=== PATIENT | male | born 1995 | race Caucasian/White ===

== ENCOUNTER 2017-01-01 12:49 | Day surgery (SDC) | payer OTHER ==
[~2017-01-01 12:49] MED LIST: CEFAZOLIN 2 GM/D5W RTU 2 GM/50 ML RTUPB IV PRN; LACTATED RINGERS 1000 ML IV PRN; LIDOCAINE 0.5% INJ-PF (5 MG/ML) 50 ML SDV SUBCUT PRN
[2017-01-01] MEDS ORDERED: BUPIVACAINE HCL 0.25 % INJ/PF (2.5 MG/1 ML) 30 ML VIAL ONE (14:52)
[2017-01-01] MEDS ORDERED: FENTANYL CITRATE INJ/PF 100 MCG/2 ML AMPUL ONE (16:06)
[2017-01-01] MEDS ORDERED: MIDAZOLAM 2 MG/2 ML INJ ONE (16:06)
[2017-01-01] MEDS ORDERED: DEXAMETHASONE SOD PHOSPHATE INJ 4 MG/1 ML VIAL ONE (16:06)
[2017-01-01] MEDS ORDERED: HYDROMORPHONE HCL INJ/PF 2 MG/ML AMPULE ONE (16:06)
[2017-01-01] MEDS ORDERED: ONDANSETRON HCL INJ/PF 4 MG/2 ML SDV ONE (16:07)
[2017-01-01] MEDS ORDERED: PROPOFOL INJ 200 MG/20 ML VIAL IV ONE (16:07)
[2017-01-01] MEDS ORDERED: PROMETHAZINE HCL INJ 25 MG/1 ML VIAL IV PRN (16:49)
[2017-01-01] MEDS ORDERED: DIPHENHYDRAMINE HCL 50 MG/ML VIAL IV PRN (16:49)
[2017-01-01] MEDS ORDERED: MEPERIDINE HCL/PF INJ 25 MG/1 ML DISP.SYRIN IV PRN (16:49)
[2017-01-01] MEDS ORDERED: FENTANYL CITRATE INJ/PF 100 MCG/2 ML AMPUL IV PRN ×3 (16:49)
[2017-01-01] MEDS ORDERED: OXYCODONE-ACETAMINOPHEN 5-325 MG TABLET PO PRN (18:05)
[2017-01-01] MEDS ORDERED: HYDROMORPHONE HCL INJ/PF 2 MG/ML AMPULE IV PRN (18:06)
[2017-01-01] MEDS ORDERED: ONDANSETRON HCL INJ/PF 4 MG/2 ML SDV IV PRN (18:07)
--- NOTE | 2017-01-01 18:08 | OPERATIVE REPORT E ---
Operative Report NAME: WIL BOWIE : 1995 AGE: 21Y DATE OF SURGERY: 01/01/2017 ROOM: SURGEON: RADHA TRACY D.O. LOCKER OPERATOR: Milton Gomes M.D. PREOPERATIVE DIAGNOSIS: Left varicocele. POSTOPERATIVE DIAGNOSIS: Left varicocele. OPERATION: Left microscopic varicocelectomy. ANESTHESIA: General. INTRAVENOUS FLUIDS: 800 mL lactated Ringer's ESTIMATED BLOOD LOSS: 5 mL URINE OUTPUT: 0 IMPLANTS: None. DRAINS: None. COMPLICATIONS: None. FINDINGS: Left varicocele. INDICATIONS FOR PROCEDURE: The patient is a 21-year-old male with longstanding history of left grade III varicocele. He is counseled on the risks, benefits, and side effects of left-sided varicocelectomy. Consent was achieved. PROCEDURE: The patient was met in the preoperative holding area. Risks, benefits and side effects of left-sided varicocelectomy again reviewed, and the patient consented to proceed. He was brought to the operative theater and placed in supine position, and general anesthesia was induced. He was then sterilely prepped and draped in the usual fashion. A timeout was performed *------*, laterality being the left and that preoperative antibiotics administered. Following this, we proceeded. A 4 cm incision was made 1 cm superior and lateral to the external ring on the left. This was deepened down to the external oblique fascia, which was entered in direction of its fibers with Metzenbaum scissors. The spermatic cord was then freed from its attachments and isolated with a Phoenix drain. A 2-0 Vicryl suture was placed at the apex of the incision in the external oblique fashion and saved for later use. We brought the microscope onto the field. We entered the external and internal *------* fascia with electrocautery, and then dissected through. We isolated 2 very large dilated veins. The vas deferens and testicular artery were identified with the microscope and Doppler ultrasound. The veins were tied sequentially with 4-0 silk ties and then returned to the cord. A cord block was performed with 0.25% Marcaine, and then the external oblique fascia was closed with the pre-placed 2-0 Vicryl suture in running fashion. The wound was then copiously irrigated. We injected Marcaine into the external oblique fascia. We closed the Bruna's with interrupted 3-0 Vicryl sutures and other subcutaneous stitches with 2 interrupted Vicryl sutures as well. The field block was performed with 0.25% Marcaine and then the skin was reapproximated with 4-0 Monocryl in a running subcuticular fashion. The skin was sealed with Dermabond and was dressed with fluff gauze and scrotal support. The patient tolerated the procedure well. He was awakened and taken to the PACU in good condition. At the conclusion of the case, all instrument, needle, and sponge counts were complete and correct. DICTATING PHYSICIAN: RADHA TRACY D.O. [id number] PHY#: [id number] ID: [id number] JOB#: [id number] ACCT: [id number] cc:RADHA TRACY D.O. >
[2017-01-01 19:21] VITALS: BP 115/61
== END 2017-01-01 19:23 | disposition home or self-care (01) ==
LOC: OROUT 12:49
PROVIDERS: ATTEND Surgery
PROC: 0VBG0ZZ Excision of Left Spermatic Cord, Open Approach (ICD-10-PCS; principal; 2017-01-01 14:30)
DX: I86.1 Scrotal varices (principal); F17.290 Nicotine dependence, other tobacco product, uncomplicated
CPT/HCPCS: 55530; J2250; J1100; J3010; J1170; J2405; J2704; J0690; 860